=== PATIENT | male | born 1950 | race Caucasian/White ===

== ENCOUNTER → 2018-01-31 11:30 | Outpatient (CLI) | payer OTHER, MEDICARE, SELFPAY ==
--- NOTE | 2018-01-31 | DI.MRI.S_ITS ---
PROCEDURE: MR HIP LT WO CON INDICATIONS: ACUTE PAIN OF LEFT HIP AND KNEE TECHNIQUE: Noncontrast coronal T1 spin echo and STIR through the bony pelvis. Coronal and axial T2 fast spin echo with fat saturation, sagittal T1 spin echo, and oblique axial T2 fast spin echo with fat saturation through the hip. COMPARISON: [facility], CR, XR PELVIS WITH LATERAL HIP LEFT, 12/15/2017, 10:44. FINDINGS: Image quality: Excellent. Bones and joints: Bone marrow of the pelvic ring and proximal femurs show normal signal throughout. No intraosseous lesions or fractures. No avascular necrosis of the femoral heads. The visualized lower lumbar spine appears normally aligned. There is mild to moderate hip joint osteoarthritis symmetric bilaterally, previously also seen by plain film imaging A. Tendons and ligaments: The gluteus medius and minimus tendons appear intact, without associated muscle atrophy. The nearby proximal iliotibial band also appears intact. The iliopsoas tendon appears intact, without adjacent bursal fluid collections or evidence for impingement syndrome. The origin of the hamstring tendon is intact at the ischial tuberosity, as well as the associated sacrotuberous ligament. The straight and reflected heads of the rectus femoris muscle origin appear intact, as well as the conjoint tendon. The ligamentum teres appears intact where visualized. Labrum and cartilage: The acetabular labrum appears intact in the absence of intra-articular contrast. Cartilage surface of the femoral head appears of normal thickness. The alpha angle of the femur is within normal limits at less than 55 degrees. Soft tissues: Visualized muscles demonstrate normal bulk and internal signal. Quadratus femoris muscle demonstrates no internal edema to suggest ischiofemoral impingement. The proximal sciatic neurovascular bundle appears normal adjacent to the hamstring tendons. No free pelvic fluid. Bladder wall thickness is normal. Genitourinary structures and bowel loops appear normal where visualized. IMPRESSION: Symmetric hip joint osteoarthritis, mild to moderate, without trauma or evidence of acute inflammation superimposed. Source of new asymmetric left-sided pain is not found otherwise. Dictated by: Stiven Muller M.D. on 01/31/2018 at 16:14 Approved by: Stiven Muller M.D. on 01/31/2018 at 16:15
--- NOTE | 2018-01-31 | DI.MRI.S_ITS ---
PROCEDURE: MR KNEE LT WO CON INDICATIONS: ACUTE PAIN OF LEFT HIP AND KNEE TECHNIQUE: Noncontrast sagittal PD fast spin echo and T2 fast spin echo with fat saturation, sagittal 3-D FLASH with fat saturation; coronal T1 spin echo and PD fast spin echo with fat saturation, and axial PD fast spin echo with fat saturation through the knee. COMPARISON: None. FINDINGS: Image quality: Excellent. Menisci: The medial and lateral menisci demonstrate moderately severe morphology and internal signal. The meniscal root ligaments appear intact. Cruciate ligaments: The anterior and posterior cruciate ligaments appear free of disruption.. Medial structures: The medial collateral ligament appears intact. The posterior oblique ligament, semimembranosus tendon insertions, oblique popliteal ligament, and meniscocapsular junction appear intact. Visualized portions of the pes anserinus tendons appear normal. No abnormal bursal fluid. Lateral structures: The lateral collateral ligament, long and short heads of the biceps femoris tendon appear intact. The popliteus tendon appears normal; the popliteofibular ligament appears intact. The posterosuperior and anteroinferior popliteomeniscal fascicles appear intact. The arcuate and fabellofibular ligaments appear intact, on either side of the lateral inferior geniculate artery. Iliotibial band appears normal. Anterior structures: The quadriceps and patellar tendons appear intact. Patellar alignment is normal. No femoral trochlear dysplasia or ventral trochlear prominence. No edema in the infrapatellar fat pad. Bones and cartilage: No bone marrow contusions or fractures. The cartilage of the medial and lateral femorotibial compartments, as well as the patellofemoral compartment, appears significantly reduced in thickness indicating presence of chronic degenerative knee joint osteoarthritis there is moderately severe at the medial compartment and moderate in severity at the lateral compartment. It appears moderate in severity of the patellofemoral joint lateral facet also. 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 Joint space: There is a mild excess of knee joint fluid. Minimal Hudson's cyst. Normal appearing synovial plicae are incidentally noted. IMPRESSION: Trauma or ligament injury is not found that there is moderately severe to severe degenerative changes involving the 3 compartments of the left knee, most pronounced at the medial compartment of the knee where chondromalacia allow us near [id number] articulation. Reactive marrow edema is present, mild in overall severity, where chondromalacia has eroded the articular cartilage. Reactive joint effusion is mild in severity, as a result. Degenerative morphology and signal abnormalities are present involving the medial and lateral menisci, most prominent medially. Dictated by: Stiven Muller M.D. on 01/31/2018 at 16:16 Approved by: Stiven Muller M.D. on 01/31/2018 at 16:20
== END ==
PROVIDERS: Visit Provider Orthopaedic Surgery
DX: M25.552 Pain in left hip (principal); M25.562 Pain in left knee; M16.0 Bilateral primary osteoarthritis of hip; M17.12 Unilateral primary osteoarthritis, left knee; M94.262 Chondromalacia, left knee; M25.462 Effusion, left knee
CPT/HCPCS: 73721

== ENCOUNTER 2020-10-30 06:34 | Day surgery (SDC) | payer OTHER, SELFPAY ==
--- NOTE | 2020-10-30 | PATH_ITS ---
[facility] Accession Number: [id number] . 01 Material submitted: . colon - TRANSVERSE COLON POLYP X2 . 02 Diagnosis: Transverse Colon, Polyp x2, Biopsy: Tubular adenoma, one fragment. MRV 11/01/2020 1341 Local . 02 Electronically signed: . Aliya Camacho MD, Pathologist NPI- [id number] . 01 Gross description: . TRANSVERSE COLON POLYP X2: Received in formalin is 1 fragment(s) of squires, soft tissue measuring 0.4 x 0.2 x 0.2 cm submitted entirely in 1 cassette(s) /MAURICOI 10/31/2020 0417 Local . 02 Pathologist provided ICD-10: D12.3 . 02 CPT . 145947 Performed at: 01 [facility] Located within [facility] [address] [id number] MD William Summers MD Phone: [phone] Performed at: 02 [facility] [place] [address] [place], [place] [id number] MD Aliya Camacho MD Phone: [phone]
[2020-10-30 07:12] LABS: COVID19 -Nasal RAPID Negative (Negative)
--- NOTE | 2020-10-30 08:12 | PM.HP.1 ---
History of Present Illness History of Present Illness Date Patient Seen: 10/30/20 Time Patient Seen: 08:13 Chief complaint: SDC Narrative: I reviewed the H/P by Dr Neville on 08/21. No changes. Patient History Medical History Hypercholesteremia Hypertension Family & Social History Family history unavailable: Yes Meds Home Medications and Allergies Home Medications Medication Instructions Recorded Confirmed Type amlodipine 2.5 mg tablet 2.5 mg PO DAILY 10/30/20 10/30/20 History aspirin 81 mg tablet,delayed 81 mg PO DAILY 10/30/20 10/30/20 History release atorvastatin 10 mg tablet 10 mg PO DAILY 10/30/20 10/30/20 History latanoprost 0.005 % eye drops 1 drp OPHTHALMIC (EYE) DAILY 10/30/20 10/30/20 History losartan 100 1 tab PO DAILY 10/30/20 10/30/20 History mg-hydrochlorothiazide 25 mg tablet Allergies Allergy/AdvReac Type Severity Reaction Status Date / Time sulfamethoxazole Allergy Intermediate Cough Verified 10/30/20 07:49 [From Bactrim] trimethoprim [From Bactrim] Allergy Intermediate Cough Verified 10/30/20 07:49 Review of Systems Review of Systems ROS: Yes All systems reviewed with the patient and are negative except as otherwise documented Exam Const General: cooperative and comfortable Orientation: alert HENAL Head: normocephalic Ears: external ears normal Nose: external nose normal Face and sinus: normal facial exam Mouth: oral mucosae normal Eyes General: appearance normal, both eyes and all related structures Neck Neck: normal visual inspection Chest Chest: normal inspection of the chest Resp Effort & Inspection: normal respiratory effort Auscultation: clear to auscultation bilaterally Cardio Rate: regular rate Rhythm: regular rhythm Heart Sounds: no murmurs GI Inspection: normal to inspection Palpation: soft and No tender Auscultation: normal bowel sounds Skin General: no rashes or lesions noted and No jaundice Neuro General: patient alert and moves all extremities Cognition: normal cognition Speech: speech normal Extrem General: no pedal edema Psych Appearance: grossly normal Objective Labs Labs: Laboratory Results - last 24 hr 10/30/20 06:47 SARS-CoV-2 (PCR) Negative Assessment & Plan Assessment & Plan narrative: Change in bowel. personal hx of colon polyps. Colonoscopy today.
[2020-10-30 08:17] VITALS: BP 142/93; PULSE 60; RESP 16; TEMP 36.3; O2SAT 97
[2020-10-30] MEDS: LACTATED RINGERS 1,000 ML 42 ML IV (08:18)
--- NOTE | 2020-10-30 08:18 | PM.PREOP ---
Pre-operative Note COVID-19 COVID-19 status: Negative Result date/Date tested (Pos, Neg/Pending): 10/30/20 Interval Note History & Physical reviewed/Exam performed by Physician: Yes Changes to H&P: No ASA Class (for procedural sedation): II
[2020-10-30] MEDS: fentaNYL 250 MCG/5 ML INJ IV (08:33)
[2020-10-30] MEDS: MIDAZOLAM 5 MG/5 ML VIAL IV (08:40)
--- NOTE | 2020-10-30 09:10 | PM.OP.ENDO ---
Operative Date/Time/Diagnoses Date of procedure: 10/30/20 Time of procedure: 08:30 Pre-op diagnosis: Colon polyps Post-op diagnosis: other (Colon polyps, diverticulosis, hemorrhoids ) Procedure & Clinicians Study performed: colonoscopy with snare polypectomy Same procedure as scheduled: Yes Indications: polyps hx Surgeon: Adrien Beltran Procedure Notes SCOAP/Timeout: done Procedure in detail: After the risks and benefits were explained, written and verbal informed consent was obtained. The patient was brought into the procedure room and placed into the left lateral decubitus position. Conscious sedation medication was applied as per nursing documentation. Digital rectal examination was accomplished. The scope was introduced into the patient and advanced under direct visualization to the cecum as identified by the appendiceal orifice and ileocecal valve. The scope was slowly withdrawn to carefully examine the mucosa for any defects or lesions. Comprehensive imaging was accomplished throughout the rectum including the dentate line. The colon was decompressed, the scope was then removed from the patient who tolerated the procedure well. 5mg versed, 50mcg fentanyl Scope withdrawal time: 20 minutes Sedation minutes: 35 Impression: Diverticulosis in the sigmoid Colon polyps x 2 in the transverse removed with hot snare polypectomy. These ranged from 7-9mm in greatest dimension. The larger of the two polyps was lost in the channel of the scope. Moderate hemorrhoids Enlarged appearing prostate. Post-procedure Recommendations: Colonscopy in 5 years Plan for aftercare: Follow up in primary care for prostate health. Disposition: PACU
[2020-10-30 09:11] VITALS: BP 147/87; PULSE 67; RESP 11; TEMP 36.3; O2SAT 94
[2020-10-30 09:15] VITALS: BP 137/79; PULSE 62; RESP 15; O2SAT 98
[2020-10-30 09:22] VITALS: BP 141/91; PULSE 72; RESP 19; TEMP 36.7; O2SAT 97
--- NOTE | 2020-10-30 09:24 | SUR.PHASEI ---
Stable PACU stay.
[2020-10-30 09:28] VITALS: BP 148/86; PULSE 58; RESP 18; TEMP 36.2; O2SAT 98
--- NOTE | 2020-10-30 09:45 | SUR.PHASEII ---
Belly soft, tolerated liquids, wanting to go home, called. Pt dressed, left when ready and left in stable condition.
[2020-10-30 09:46] VITALS: BP 141/86; PULSE 58; RESP 169; TEMP 36.4
== END 2020-10-30 09:51 | disposition home or self-care (01) ==
PROVIDERS: Referring Provider Internal Medicine Gastroenterology; Visit Provider Internal Medicine Gastroenterology
PROC: 0DJD8ZZ Inspection of Lower Intestinal Tract, Via Natural or Artificial Opening Endoscopic (ICD-10-PCS; CPT 45378; principal; 2020-10-30 08:30)
DX: Z12.11 Encounter for screening for malignant neoplasm of colon (principal); Z86.010 Personal history of colon polyps; Z20.822 Contact with and (suspected) exposure to COVID-19; K57.30 Diverticulosis of large intestine without perforation or abscess without bleeding; K64.9 Unspecified hemorrhoids; D12.3 Benign neoplasm of transverse colon
CPT/HCPCS: 45385; 87635; J2250; J3010

== ENCOUNTER 2022-08-13 09:07 | Inpatient (IN) | payer MEDICARE, OTHER, SELFPAY ==
[2022-08-13] VITALS (19 sets, daily range): BP systolic 126–166; BP diastolic 62–99; PULSE 68–85; RESP 16–19; TEMP 36.3–36.9; O2SAT 93–98; BMI 37.5; BMI 36.8
[2022-08-13 09:27] LABS: Add Manual Diff / Slide Review NO; Basophils Absolute Auto 100 /uL (0-100); Basophils Percent Auto 0.7 % (0-2); Eosinophils Absolute Auto 0 /uL (0-450); Eosinophils Percent Auto 0.5 % (2-4); Hematocrit 37.6 % (41-53); Hemoglobin 12.8 g/dL (13.5-17.5); Lymphocytes Absolute Auto 1500 /uL (1100-4500); Lymphocytes Percent Auto 15.7 % (25-40); Mean Corpuscular Hemoglobin 31.3 PG (26-34); Monocytes Absolute Auto 700 /uL (0-900); Monocytes Percent Auto 7.6 % (3-14); Neutrophils Absolute Auto 7400 /uL (1500-7000); Neutrophils Percent Auto 75.5 % (50-75); Platelet Count 157 X10^3/uL (150-400); Red Blood Cell Count 4.09 X10^6/uL (4.5-5.9); Red Cell Distribution Width 13.2 % (11.6-14.8); White Blood Cell Count 9.8 X10^3/uL (4.5-11.0)
[2022-08-13 09:43] LABS: Alanine Aminotransferase 22 IU/L (<50); Albumin 4.1 g/dL (3.5-5.0); Albumin Globulin Ratio 1.5 (1.0-2.8); Alkaline Phosphatase 125 U/L (38-126); Aspartate Aminotransferase 22 IU/L (17-59); BUN Creatinine Ratio 17.9 (6-22); Bilirubin Total 0.6 mg/dL (0.2-1.3); Blood Urea Nitrogen 14 mg/dL (9-20); Calcium 8.7 mg/dL (8.4-10.2); Carbon Dioxide 27 mmol/L (22-32); Chloride 104 mmol/L (98-107); Estimated Glomerular Filt Rate > 60 mL/min (>60); Globulin 2.8 g/dL (1.7-4.1); Glucose 108 mg/dL (80-110); HEMOLYSIS < 15 (0-50); Lipase 72 U/L (23-300); Potassium 3.7 mmol/L (3.4-5.1); Sodium 138 mmol/L (137-145); Total Protein 6.9 g/dL (6.3-8.2)
--- NOTE | 2022-08-13 10:40 | ED.ABDPAIN ---
HPI - Abdominal Pain General Chief Complaint: Abdominal Pain Stated Complaint: T-60 gurgling stomach/T-1 gas couldn't sleep Time Seen by Provider: 08/13/22 10:20 Source: patient Mode of arrival: Ambulatory History of Present Illness HPI narrative: This is a 72-year-old male who presents with complaint of 2 months of a gurgling stomach and sometimes indigestion which he describes as upper abdominal discomfort he does not normally get any chest discomfort or burning substernally. He states it has been slowly progressive, last night he states he had a couple glasses of wine they had been playing cards with friends and had multiple not healthy foods according to the patient. He states that he had increasing pain sometimes when his stomach gurgles he will feel gas moving throughout and will have some discomfort but it is usually more mid abdomen not so much lower pelvic. States he threw up 2 or 3 times last night which is atypical and was the food that he would eaten. No blood or other changes. He states he did have a little bit of substernal reflux after vomiting where he had some burning in his chest that resolved. No shortness of breath. No passing out. He states he does not belching frequently but has had a lot of flatulence. He states his bowel movements today loose but formed. He states no diarrhea, no constipation. No bright red blood or melena. Patient states when he eats it seems to worsen or cause his symptoms. Last night he would sit up for about half an hour his symptoms feel better and then he laid down and they would reoccur. He does take Gaviscon nightly which was helpful up to this point. He denies any back or flank pain. No urinary symptoms. Was taken aspirin 81 mg daily after he had a hip surgery a month ago but is not typically medication for him daily. He takes medication for hypertension dyslipidemia. Prior appendectomy, no cardiac stents. Allergic to Bactrim. No tobacco, will have drinks frequently but 1 or 2 in the evening, no illicit. [facility] Rivers. Patient notes that they told him he had a mass in his abdomen he is never had an EGD or any imaging he states he can quarter palpated unsure if this is mass versus hernia. Related Data Home Medications Medication Instructions Recorded Confirmed aspirin 81 mg tablet,delayed 81 mg PO DAILY 10/30/20 08/13/22 release atorvastatin 10 mg tablet 10 mg PO DAILY 10/30/20 08/13/22 latanoprost 0.005 % eye drops 1 drp ophthalmic (eye) DAILY 10/30/20 08/13/22 losartan 100 1 tab PO DAILY 10/30/20 08/13/22 mg-hydrochlorothiazide 25 mg tablet amlodipine 10 mg tablet 10 mg PO DAILY 08/13/22 08/13/22 terazosin 5 mg capsule 5 mg PO DAILY 08/13/22 08/13/22 Allergies Allergy/AdvReac Type Severity Reaction Status Date / Time sulfamethoxazole Allergy Intermediate Cough Verified 08/13/22 15:43 [From Bactrim] trimethoprim [From Bactrim] Allergy Intermediate Cough Verified 08/13/22 15:43 Review of Systems Review of Systems ROS Unobtainable: All systems reviewed & are unremarkable except as noted in HPI and below Patient History Medical History Hypercholesteremia Hypertension Social History household members: spouse Smoking Status: Never smoker alcohol intake: current Smoking Status: Never smoker alcohol intake frequency: holidays/special occasions only Substance Use Type: does not use Exam Narrative Exam Narrative: GENERAL: Alert and oriented x three, well-appearing male in mild distress. HEENT: Head normocephalic, atraumatic, EOMI, pupils reactive, face symmetric, moist mucous membranes NECK: Supple, full range of motion CARDIOVASCULAR: Regular rate and rhythm without murmurs, rubs or gallops. RESPIRATORY: Breath sounds equal bilaterally, no wheezes rales or rhonchi. ABDOMEN: Soft, nontender. Nondistended. Normoactive bowel sounds all 4 quadrants. No guarding or rebound, rigidity, no mass : No CVA tenderness EXTREMITIES: Normal range of motion, no clubbing or edema. Neurovascularly intact NEUROLOGICAL: Cranial nerves II through XII grossly intact. Moving all extremities SKIN: Warm, dry, no petechiae, no rashes or lesions. Initial Vital Signs Initial Vital Signs: Vital Signs Temperature 98.1 F 08/13/22 09:12 Pulse Rate 68 08/13/22 09:12 Respiratory Rate 19 08/13/22 09:12 Blood Pressure 157/77 H 08/13/22 09:12 Pulse Oximetry 97 08/13/22 09:12 Oxygen Delivery Method Room Air 08/13/22 09:12 Course Orders Ordered: ED Orders 08/13/22 10:51 CT abdomen pelvis w con Stat 08/13/22 13:10 COVID19 -Nasal RAPID Stat Acetaminophen (Acetaminophen 325 Mg Tablet) 650 mg PO Q6H PRN PRN Reason: Fever/Mild Pain (1-3) Amlodipine Besylate (Amlodipine 5 Mg Tablet) 10 mg PO DAILY [facility] Atorvastatin Calcium (Atorvastatin 20 Mg Tablet) 10 mg PO DAILY [facility] Hydrochlorothiazide (Hydrochlorothiazide 25 Mg Tablet) 25 mg PO DAILY [facility] Hydromorphone HCl (Hydromorphone 1 Mg Inj) 1 mg IV Q3H PRN PRN Reason: Pain, Moderate (4-6) Sodium Chloride (Normal Saline 0.9%) 1,000 mls @ 100 mls/hr IV CONT SAJI Last Admin: 08/13/22 14:43 Dose: 100 mls/hr Documented By: SHERI Lactated Ringer's (Lactated Ringers) 1,000 mls @ 42 mls/hr IV NOW ONE Stop: 08/14/22 18:08 Last Infusion: 08/13/22 18:20 Dose: 0 mls/hr Documented By: Admin: 08/13/22 17:00 Dose: 42 mls/hr Documented By: OMAR Latanoprost (Latanoprost 0.005% Ophth 2.5 Ml) 1 drops EYE-BOTH BEDTIME [facility] Losartan Potassium (Losartan 50 Mg Tablet) 100 mg PO DAILY [facility] Naloxone HCl (Naloxone 0.4 Mg/Ml Vial) 0.2 mg IV Q2MIN PRN PRN Reason: Opiate Reversal Ondansetron HCl (Ondansetron 4 Mg/2 Ml Inj) 4 mg IV NOW PRN PRN Reason: Nausea And Vomiting Oxycodone HCl (Oxycodone Ir 5 Mg Tablet) 5 mg PO Q3H PRN PRN Reason: Pain, Moderate (4-6) Terazosin HCl (Terazosin 5 Mg Capsule) 5 mg PO DAILY [facility] Discontinued Medications Bupivacaine HCl (Bupivacaine 0.25% (Pf) Vial) 30 ml INJ NOW ONE Stop: 08/13/22 16:56 Last Admin: 08/13/22 16:56 Dose: 20 ml Documented By: OUMAR Fentanyl (Fentanyl 100 Mcg/2 Ml Inj) 0 mcg IV Q5MIN PRN PRN Reason: Pain, Severe (7-10) Fentanyl (Fentanyl 100 Mcg/2 Ml Inj) 0 mcg IV Q5M PRN PRN Reason: Pain, Moderate (4-6) Fentanyl (Fentanyl 100 Mcg/2 Ml Inj) 0 mcg IV Q5M PRN PRN Reason: Pain, Severe (7-10) Hydromorphone HCl (Hydromorphone 2 Mg Inj) 0 mg IV Q5MIN PRN PRN Reason: Pain, Mild (1-3) Hydromorphone HCl (Hydromorphone 2 Mg Inj) 0 mg IV Q5M PRN PRN Reason: Pain, Moderate (4-6) Hydromorphone HCl (Hydromorphone 2 Mg Inj) 0 mg IV Q5M PRN PRN Reason: Pain, Severe (7-10) Cefazolin Sodium/Dextrose (Ancef) 100 mls @ 200 mls/hr IV NOW ONE Stop: 08/13/22 16:56 Last Infusion: 08/13/22 16:55 Dose: 0 mls/hr Documented By: Admin: 08/13/22 16:48 Dose: 200 mls/hr Documented By: RIMA Ondansetron HCl (Ondansetron 4 Mg/2 Ml Inj) 4 mg IV NOW PRN PRN Reason: Nausea And Vomiting Oxycodone/Acetaminophen (Oxycodone/Acetaminophen 5/325 Tablet) 1 tab PO PACUNOW PRN PRN Reason: Mild or Moderate Pain Pantoprazole Sodium (Pantoprazole 40 Mg Vial) 40 mg IV NOW ONE Stop: 08/13/22 10:52 Last Admin: 08/13/22 11:08 Dose: 40 mg Documented By: ANNIE Vital Signs Vital signs: Vital Signs - 8 hr 08/13/22 13:41 Blood Pressure 166/90 H MDM - Abdominal Pain Lab Data 08/13/22 09:20 08/13/22 09:20 Labs: Lab Results 08/13/22 08/13/22 08/13/22 Range/Units 09:20 09:20 09:23 WBC 9.8 (4.5-11.0) X10^3/uL RBC 4.09 L (4.5-5.9) X10^6/uL Hgb 12.8 L (13.5-17.5) g/dL Hct 37.6 L (41-53) % MCV 92.0 (80-100) fL MCH 31.3 (26-34) PG MCHC 34.0 (30-36) % RDW 13.2 (11.6-14.8) % Plt Count 157 (150-400) X10^3/uL Neut % (Auto) 75.5 H (50-75) % Lymph % (Auto) 15.7 L (25-40) % [place] % (Auto) 7.6 (3-14) % Eos % (Auto) 0.5 L (2-4) % Baso % (Auto) 0.7 (0-2) % Neut # (Auto) 7400 H (3392-9908) /uL Lymph # (Auto) 1500 (4710-0099) /uL [place] # (Auto) 700 (0-900) /uL Eos # (Auto) 0 (0-450) /uL Baso # (Auto) 100 (0-100) /uL Sodium 138 (137-145) mmol/L Potassium 3.7 (3.4-5.1) mmol/L Chloride 104 (98-107) mmol/L Carbon Dioxide 27 (22-32) mmol/L BUN 14 (9-20) mg/dL Creatinine 0.78 (0.66-1.25) mg/dL Estimated GFR > 60 (>60) mL/min BUN/Creatinine Ratio 17.9 (6-22) Glucose 108 (80-110) mg/dL Calcium 8.7 (8.4-10.2) mg/dL Total Bilirubin 0.6 (0.2-1.3) mg/dL AST 22 (17-59) IU/L ALT 22 (<50) IU/L Alkaline Phosphatase 125 (38-126) U/L Total Creatine Kinase 55 (55-170) U/L CK-MB (CK-2) TNP CK-MB (CK-2) Rel Index TNP Troponin I 0.013 (0.01-0.034) ng/mL Total Protein 6.9 (6.3-8.2) g/dL Albumin 4.1 (3.5-5.0) g/dL Globulin 2.8 (1.7-4.1) g/dL Albumin/Globulin Ratio 1.5 (1.0-2.8) Lipase 72 (23-300) U/L SARS-CoV-2 (PCR) (Negative) 08/13/22 Range/Units 13:10 WBC (4.5-11.0) X10^3/uL RBC (4.5-5.9) X10^6/uL Hgb (13.5-17.5) g/dL Hct (41-53) % MCV (80-100) fL MCH (26-34) PG MCHC (30-36) % RDW (11.6-14.8) % Plt Count (150-400) X10^3/uL Neut % (Auto) (50-75) % Lymph % (Auto) (25-40) % [place] % (Auto) (3-14) % Eos % (Auto) (2-4) % Baso % (Auto) (0-2) % Neut # (Auto) (9098-6158) /uL Lymph # (Auto) (3868-6630) /uL [place] # (Auto) (0-900) /uL Eos # (Auto) (0-450) /uL Baso # (Auto) (0-100) /uL Sodium (137-145) mmol/L Potassium (3.4-5.1) mmol/L Chloride (98-107) mmol/L Carbon Dioxide (22-32) mmol/L BUN (9-20) mg/dL Creatinine (0.66-1.25) mg/dL Estimated GFR (>60) mL/min BUN/Creatinine Ratio (6-22) Glucose (80-110) mg/dL Calcium (8.4-10.2) mg/dL Total Bilirubin (0.2-1.3) mg/dL AST (17-59) IU/L ALT (<50) IU/L Alkaline Phosphatase (38-126) U/L Total Creatine Kinase (55-170) U/L CK-MB (CK-2) CK-MB (CK-2) Rel Index Troponin I (0.01-0.034) ng/mL Total Protein (6.3-8.2) g/dL Albumin (3.5-5.0) g/dL Globulin (1.7-4.1) g/dL Albumin/Globulin Ratio (1.0-2.8) Lipase (23-300) U/L SARS-CoV-2 (PCR) Negative (Negative) Point of care testing: Urine Dip Bedside Urine Glucose Negative Bedside Urine Bilirubin - Negative Bedside Urine Ketone - Negative Urine Specific Rice 1.015 Bedside Urine Occult Blood - Negative Bedside Urine pH 7.0 Bedside Urine Protein - Negative Bedside Urine Urobilinogen - Negative Bedside Urine Nitrite - Negative Bedside Urine Leukocytes - Negative Esterase Imaging Data CT scan - abdomen/pelvis: Radiologist's Impression: [address] [address] [address] Scan Report Signed Patient: Parker Phoenix MR#: [id number] : 1950 Acct:[id number] Age/Sex: 72 / M Date of Service: 08/13/22 Loc: ED Accession Number: [id number] ?? Procedure: CT abdomen pelvis w con Ordering Provider: Tasha Whitt D.O. PROCEDURE:? CT ABDOMEN PELVIS W CON ? INDICATIONS:? reflux/abd pain worsening over 2 months, told has mass in ab ? TECHNIQUE:? After the administration of intravenous contrast, axial sections acquired from the lung bases to the pubic symphysis.? Coronal and sagittal reformats were performed.? For radiation dose reduction, the following was used:? automated exposure control, adjustment of mA and/or kV according to patient size.? ? COMPARISON:? None. ? FINDINGS: Image quality:? Excellent.? ? Lung bases:? Lung bases are clear.? Heart size is normal. ? Solid organs:? Liver: The liver has no mass or intrahepatic biliary ductal dilatation. Biliary: The gallbladder has no gallstones, pericholecystic fluid, gallbladder wall thickening, or surrounding inflammatory change. Pancreas: The pancreas has no mass or ductal dilatation. There is no surrounding inflammation. Spleen: Normal size. There are no masses. Adrenals:? 1.3 cm right adrenal nodule with low density consistent with a lipid rich adenoma. Kidneys: No obstructive calculus or hydronephrosis.? No solid mass.? Simple renal cysts.? ? ? Peritoneum and bowel:? Small hiatal hernia.? The distal esophagus and stomach are normal. ?The small bowel demonstrates fluid-filled loops in the left upper quadrant proximal to a periumbilical hernia.? The terminal ileum is normal. The large bowel has diverticulosis with no evidence of diverticulitis.? No free fluid or air.? ? Nodes and vessels:? No retroperitoneal or mesenteric adenopathy by size criteria.? Aorta and inferior vena cava are normal in size.? ? Miscellaneous:? Paraumbilical hernia containing small bowel.? Fat containing right inguinal hernia. ? PELVIS:? Genitourinary:? The bladder has no wall thickening or mass. No bladder calcifications. ? Bones:? Status post total left hip replacement.? No suspicious bony lesions.? No vertebral body compression fractures.? ? IMPRESSION:? 1. Periumbilical hernia containing small bowel and partial small-bowel obstruction proximal to the hernia. 2. Benign right adrenal adenoma. 3. Diverticulosis without evidence of diverticulitis.? ? ? Dictated by: Mike Davis M.D. on 08/13/2022 at 11:58 ? ? Approved by: Mike Davis M.D. on 08/13/2022 at 12:05?? ECG Data Attestation: I personally reviewed and interpreted this ECG as follows: Prior ECG tracings: not available for review Interpretation: Sinus rhythm frequent PVC, rate 82 NE 174 QRS of 144 QTC of 500, right bundle-branch block, left posterior fascicular block. No priors. MDM Narrative Medical decision making narrative: This is a 72-year-old male who presents with persistent and worsening abdominal pain, gurgling, last night started having vomiting, describes some indigestion type symptoms he did have some substernal burning after vomiting so cardiac enzyme was obtained. EKG shows some bifascicular block no priors for comparison. Patient describes all of his pain is mid abdominal though. CBC CMP and lipase were negative. Patient has had a colonoscopy for polyp. He states he was also told he had a mass unsure if this is truly a mass or possibly a hernia it is not easily palpable on exam today. Patient is feeling improved currently but presented as he was starting to feel worse this morning. Patient's urine negative. CT imaging shows hernia with small bowel in it and obstructive. Case was reviewed by Dr. Catherine who accepts for admission with plan for OR. Patient is NPO. Also reviewed his adrenal nodule findings and need for follow-up. Discharge Plan Departure Patient Disposition: Admitted As Inpatient Clinical Impression: Periumbilical hernia, Adrenal nodule Admit Date/Time: 08/13/22 13:52 Admit Provider: Arnulfo Soto
--- NOTE | 2022-08-13 10:51 | DI.CT.S_ITS ---
PROCEDURE: CT ABDOMEN PELVIS W CON INDICATIONS: reflux/abd pain worsening over 2 months, told has mass in ab TECHNIQUE: After the administration of intravenous contrast, axial sections acquired from the lung bases to the pubic symphysis. Coronal and sagittal reformats were performed. For radiation dose reduction, the following was used: automated exposure control, adjustment of mA and/or kV according to patient size. COMPARISON: None. FINDINGS: Image quality: Excellent. Lung bases: Lung bases are clear. Heart size is normal. Solid organs: Liver: The liver has no mass or intrahepatic biliary ductal dilatation. Biliary: The gallbladder has no gallstones, pericholecystic fluid, gallbladder wall thickening, or surrounding inflammatory change. Pancreas: The pancreas has no mass or ductal dilatation. There is no surrounding inflammation. Spleen: Normal size. There are no masses. Adrenals: 1.3 cm right adrenal nodule with low density consistent with a lipid rich adenoma. Kidneys: No obstructive calculus or hydronephrosis. No solid mass. Simple renal cysts. Peritoneum and bowel: Small hiatal hernia. The distal esophagus and stomach are normal. The small bowel demonstrates fluid-filled loops in the left upper quadrant proximal to a periumbilical hernia. The terminal ileum is normal. The large bowel has diverticulosis with no evidence of diverticulitis. No free fluid or air. Nodes and vessels: No retroperitoneal or mesenteric adenopathy by size criteria. Aorta and inferior vena cava are normal in size. Miscellaneous: Paraumbilical hernia containing small bowel. Fat containing right inguinal hernia. PELVIS: Genitourinary: The bladder has no wall thickening or mass. No bladder calcifications. Bones: Status post total left hip replacement. No suspicious bony lesions. No vertebral body compression fractures. IMPRESSION: 1. Periumbilical hernia containing small bowel and partial small-bowel obstruction proximal to the hernia. 2. Benign right adrenal adenoma. 3. Diverticulosis without evidence of diverticulitis. Dictated by: Mike Davis M.D. on 08/13/2022 at 11:58 Approved by: Mike Davis M.D. on 08/13/2022 at 12:05
[2022-08-13 11:02] LABS: Creatine Kinase 55 U/L (55-170)
[2022-08-13] MEDS: PANTOPRAZOLE 40 MG VIAL IV (11:08)
[2022-08-13 11:15] LABS: Troponin I 0.013 ng/mL (0.01-0.034)
[2022-08-13 13:49] LABS: COVID19 -Nasal RAPID Negative (Negative)
--- NOTE | 2022-08-13 14:20 | PM.HP.1 ---
History of Present Illness History of Present Illness Chief complaint: T-60 gurgling stomach/T-1 gas couldn't sleep Narrative: 72-year-old man presents to the hospital with abdominal pain nausea. He developed pain beginning last night with multiple episodes of emesis. He describes pain as zehra umbilical feels bloated. On arrival to the emergency department he is afebrile vital signs are within normal limits. White blood cell count 10 the remainder of his chemistry CBC are normal. CT abdomen pelvis demonstrates a small-bowel obstruction with dilated loops of small bowel transition point within a periumbilical hernia. No free air free fluid. Prior abdominal surgery includes an exploratory laparotomy 50 years ago. He tolerated a recent hip surgery 1 month ago without bleeding or anesthetic issues. [facility] Medical History Hypercholesteremia Hypertension Social History household members: spouse Smoking Status: Never smoker alcohol intake: current Meds Home Medications and Allergies Home Medications Medication Instructions Recorded Confirmed Type aspirin 81 mg tablet,delayed 81 mg PO DAILY 10/30/20 08/13/22 History release atorvastatin 10 mg tablet 10 mg PO DAILY 10/30/20 08/13/22 History latanoprost 0.005 % eye drops 1 drp ophthalmic (eye) DAILY 10/30/20 08/13/22 History losartan 100 1 tab PO DAILY 10/30/20 08/13/22 History mg-hydrochlorothiazide 25 mg tablet amlodipine 10 mg tablet 10 mg PO DAILY 08/13/22 08/13/22 History terazosin 5 mg capsule 5 mg PO DAILY 08/13/22 08/13/22 History Allergies Allergy/AdvReac Type Severity Reaction Status Date / Time sulfamethoxazole Allergy Intermediate Cough Verified 08/13/22 15:43 [From Bactrim] trimethoprim [From Bactrim] Allergy Intermediate Cough Verified 08/13/22 15:43 Exam Vital Signs (past 8 hours): - 08/13/22 09:12 08/13/22 09:13 08/13/22 09:14 Temperature 98.1 F Pulse Rate 68 76 Respiratory Rate 19 Blood Pressure 157/77 H Pulse Oximetry 97 93 95 Oxygen Delivery Method Room Air 08/13/22 09:14 08/13/22 09:30 08/13/22 10:00 Temperature Pulse Rate 82 80 Respiratory Rate Blood Pressure 157/77 H Pulse Oximetry 97 97 Oxygen Delivery Method 08/13/22 10:30 08/13/22 10:34 08/13/22 13:41 Temperature Pulse Rate 85 81 Respiratory Rate Blood Pressure 166/90 H Pulse Oximetry 98 98 Oxygen Delivery Method Oxygen Delivery Method Room Air Narrative Exam Narrative: GENERAL: A well nourished, well developed gentleman appearing stated age, resting comfortably, in no acute distress. HEENT: Normocephalic, atraumatic. No scleral icterus NECK: Full range of motion. No evidence of cervical lymphadenopathy or JVD. CHEST: Rising symmetrically. No audible wheezes CARDIOVASCULAR: Warm and well perfused. Regular rate ABDOMEN: Tender supraumbilical hernia partially reducible no peritonitis EXTREMITIES: Normal tone and without edema. NEUROLOGIC: Moving all extremities spontaneously. No gross motor deficits. Objective Labs 08/13/22 09:20 08/13/22 09:20 Labs: Laboratory Results - last 24 hr 08/13/22 08/13/22 08/13/22 09:20 09:20 09:23 WBC 9.8 RBC 4.09 L Hgb 12.8 L Hct 37.6 L MCV 92.0 MCH 31.3 MCHC 34.0 RDW 13.2 Plt Count 157 Neut % (Auto) 75.5 H Lymph % (Auto) 15.7 L [place] % (Auto) 7.6 Eos % (Auto) 0.5 L Baso % (Auto) 0.7 Neut # (Auto) 7400 H Lymph # (Auto) 1500 [place] # (Auto) 700 Eos # (Auto) 0 Baso # (Auto) 100 Sodium 138 Potassium 3.7 Chloride 104 Carbon Dioxide 27 BUN 14 Creatinine 0.78 Estimated GFR > 60 BUN/Creatinine Ratio 17.9 Glucose 108 Calcium 8.7 Total Bilirubin 0.6 AST 22 ALT 22 Alkaline Phosphatase 125 Total Creatine Kinase 55 CK-MB (CK-2) TNP CK-MB (CK-2) Rel Index TNP Troponin I 0.013 Total Protein 6.9 Albumin 4.1 Globulin 2.8 Albumin/Globulin Ratio 1.5 Lipase 72 SARS-CoV-2 (PCR) 08/13/22 13:10 WBC RBC Hgb Hct MCV MCH MCHC RDW Plt Count Neut % (Auto) Lymph % (Auto) [place] % (Auto) Eos % (Auto) Baso % (Auto) Neut # (Auto) Lymph # (Auto) [place] # (Auto) Eos # (Auto) Baso # (Auto) Sodium Potassium Chloride Carbon Dioxide BUN Creatinine Estimated GFR BUN/Creatinine Ratio Glucose Calcium Total Bilirubin AST ALT Alkaline Phosphatase Total Creatine Kinase CK-MB (CK-2) CK-MB (CK-2) Rel Index Troponin I Total Protein Albumin Globulin Albumin/Globulin Ratio Lipase SARS-CoV-2 (PCR) Negative Assessment & Plan Assessment and plan (1) Small bowel obstruction: Status: Acute Assessment & Plan narrative: 72M with an incarcerated ventral hernia and small bowel obstruction. I recomended that we proceed with exploratory laparotomy, ventral hernia repair with possible bowel resection. I explained that there is a risk of intestinal ischemia associated with incarcerated hernias and this could potentially require bowel resection and anastamosis. Operative risks Including hemorrhage, infection, anastomotic leak, damage to surrounding structures recurrence of hernia embolism heart attack stroke and were discussed. Questions been answered and he is in agreement with this plan. He provides his written and verbal consent to proceed. Exlap with ventral hernia repair Quality VTE Deep Vein Thrombosis/Pulmonary Embolism Present on Admission: No
[2022-08-13] MEDS: SODIUM CHLORIDE 0.9% 1,000 ML 100 ML IV (14:43)
--- NOTE | 2022-08-13 15:53 | PC.NURSE ---
pt to OR via w/c @ [id number] by OR personnel.
[2022-08-13] MEDS: CEFAZOLIN 2 GM/100 ML PREMIX 100 ML IV (16:48)
[2022-08-13] MEDS: BUPIVACAINE 0.25% (PF) VIAL 30 ML INJ (16:56)
--- NOTE | 2022-08-13 16:56 | SUR.OPER ---
Supine on padded OR bed, head on pillow, arms secured on padded arm boards at <90 degrees abduction, legs uncrossed, safety belt at thigh, tape over blanket over lower legs.
[2022-08-13] MEDS: LACTATED RINGERS 1,000 ML 42 ML IV (17:00)
--- NOTE | 2022-08-13 17:56 | P.OP_ITS ---
Operative Date/Time/Diagnoses Date of procedure: 08/13/22 Time of procedure: 17:59 Pre-op diagnosis: Small-bowel obstruction. Incarcerated ventral hernia Post-op diagnosis: same Procedure & Clinicians Procedure: Exploratory laparotomy Ventral hernia repair 8 cm Same procedure as scheduled: Yes Indications: 72-year-old man who presented with a small-bowel obstruction secondary to an incarcerated ventral hernia. He is taken in the operating room for an exploratory laparotomy and repair of hernia. Surgeon: Arnulfo Soto Click Yes if Unassisted: Yes Anesthesia Type: General Operative Notes Findings: 8 cm fascial defect containing chronically incarcerated small bowel. Bowel was viable Specimen(s): none sent Estimated Blood Loss (mL): 30 Procedure in detail: Patient brought to the operating room placed supine on the table. Bilateral lower extremity compression devices were applied. General anesthesia was induced he was intubated with an endotracheal tube. Received Ancef prior to skin incision. He was then prepped and draped in sterile fashion. Time-out was performed. A supraumbilical midline incision was made. The subcutaneous tissue was divided and the abdominal wall fascia was exposed. There was a 8 cm hernia protruding through the midline. The fascia was opened and the hernia sac carefully opened with Mets. There was a loop of chronically incarcerated small bowel within the hernia. The small bowel was then dissected off of the hernia sac using sharp dissection. The bowel was examined and it was viable without signs of ischemia. There was 1 spot which was either a tear in the hernia sac or serosal tear but regardless this was imbricated with silk suture. Small bowel was then returned to the abdomen. The hernia sac was excised. The fascia was then closed with running 1. PDS suture. Bilateral skin flaps were raised in order to expose the anterior sheath. A 6 x 3 in piece of polypropylene macro porous mesh was then cut to size to cover the defect with good overlap in all directions. The mesh was then tacked to the fascia using Ethibond suture follow ed by the application of 4 mL Tisseel. The subcutaneous tissue was infiltrated with 0.25% bupivacaine total of 20 mL. Subcutaneous tissue was reapproximated with Vicryl the skin was closed with a running 4-0 Monocryl. Patient tolerated the procedure well he was extubated and transferred to recovery room in stable condition after receiving tap block. Complications: none Post-operative Condition: stable Disposition: observation
[2022-08-13] MEDS: LATANOPROST 0.005% OPHTH 2.5 ML 1 DROPS EYE-BOTH (19:49)
[2022-08-14] VITALS (9 sets, daily range): BP systolic 125–144; BP diastolic 68–85; PULSE 58–83; RESP 18–21; TEMP 36.2–36.9; O2SAT 93–99; BMI 36.8
[2022-08-14] MEDS: SODIUM CHLORIDE 0.9% 1,000 ML 100 ML IV (04:11)
--- NOTE | 2022-08-14 08:46 | CM.DANOTE ---
DCP: Case received, EMR reviewed and met with patient. Introduced self and role. Was able to obtain information regarding patient's baseline activity level prior to hospitalization. DCP assessment completed with information currently available. Patient is a 72 year old male who admitted yesterday afternoon to the care of the hospitalist team. PCP: DALIA Fitzgerald at [facility] in [facility]. Payer: confirmed: Medicare/ for Life. Patient came to the hospital via private vehicle secondary to having gurgling stomach, indigestion, going on for a couple of months. Patient had developed multiple episodes of emesis as well. Patient was diagnosed with incarcerated ventral hernia, and small bowel obstruction. Patient had surgery yesterday pm, exploratory laparotomy, ventral hernia repair. Met with patient in his room. He was sitting up on the edge of his bed having his breakfast. He is alert and oriented, pleasant. Confirmed that he resides in [place] with spouse, Carmen. He is independent at his baseline, is retired. Goes to the [facility] in [facility] for his care. P: DCP to continue to follow. Patient should be able to go home when deemed medically stable. Natividad Marshall RN/Electrical And Radio Mock Up Mechanic Discharge Planning/Care Management CM Discharge Assessment Start: 08/14/22 08:44 Freq: Status: Active Protocol: Document 08/14/22 08:44 (Rec: 08/14/22 08:46 [id number]) Discharge Planning Assessment Assigned Grain Loader Natividad Marshall RN/Electrical And Radio Mock Up Mechanic Advance Directives? Yes Advance Directives on File No History Provided By Patient,Family Member,Medical Record Prior Living Arrangements House Household Members spouse Type of transporation used prior to Drives own vehicle admit Independent with ADL's Yes Is patient alert and oriented? Yes Caregiver for Another No Barriers to Discharge No Discharge Plan Home Transportation Arrangement Spouse Referrals Initiated None needed Whiteboard Updated in Patient Room with Yes name and ext. # of Grain Loader Review Status In Process Next Review Type Continued Stay Review
[2022-08-14] MEDS: AMLODIPINE 5 MG TABLET 10 MG PO (09:24)
[2022-08-14] MEDS: LOSARTAN 50 MG TABLET 100 MG PO (09:25)
[2022-08-14] MEDS: hydroCHLOROthiazide 25 MG TABLET PO (09:25)
[2022-08-14] MEDS: ACETAMINOPHEN 325 MG TABLET 650 MG PO (10:57)
--- NOTE | 2022-08-14 13:34 | PC.NURSE ---
Pt A&Ox4, VSS, RA, independent in room. Tolerated full diet. Pain managed with Tylenol per pt request. Reviewed discharge information with patient, pt able to teach back independently. Patient escorted down with belongings by FREIGHT CAR INSPECTOR and discharged home with ride from .
--- NOTE | 2022-08-15 17:41 | PM.DS.1 ---
History of Present Illness History of Present Illness Chief complaint: T-60 gurgling stomach/T-1 gas couldn't sleep Narrative: 72-year-old man presents to the hospital with abdominal pain nausea. He developed pain beginning last night with multiple episodes of emesis. He describes pain as zehra umbilical feels bloated. On arrival to the emergency department he is afebrile vital signs are within normal limits. White blood cell count 10 the remainder of his chemistry CBC are normal. CT abdomen pelvis demonstrates a small-bowel obstruction with dilated loops of small bowel transition point within a periumbilical hernia. No free air free fluid. Prior abdominal surgery includes an exploratory laparotomy 50 years ago. He tolerated a recent hip surgery 1 month ago without bleeding or anesthetic issues. Discharge Providers Provider Date of admission: 08/13/22 13:52 Discharge Date: 08/14/22 Primary care physician: MEGHANN Fitzgerald Discharge provider: Arnulfo Soto MD Summary Hospital Course Discharge Diagnosis: Incarcerated hernia Small-bowel obstruction Hospital Course: Patient presented with a incarcerated ventral hernia causing small-bowel obstruction. Following a discussion of risks benefits and alternatives he elected to proceed with surgery. Surgery demonstrated a chronically incarcerated portion of bowel within a ventral hernia defect. The bowel was viable and the hernia was repaired. Following surgery he had return of bowel function was ambulatory tolerant of a regular diet afebrile and the remainder of his vital signs within normal limits. He was given discharge instructions to return for worsening abdominal pain fever nausea vomiting. Exam Vital Signs (past 8 hours): Oxygen Delivery Method Room Air Oxygen Flow Rate 0 Narrative Exam Narrative: General adult man alert oriented no acute distress Abdomen soft midline incision clean dry intact. Appropriately tender to palpation. Objective Labs 08/13/22 09:20 08/13/22 09:20 [facility] Medical History Hypercholesteremia Hypertension Social History household members: spouse Smoking Status: Never smoker alcohol intake: current Discharge Plan Discharge Plan Patient Disposition: Home Provider Discharge Comment: -Okay to shower -Do not submerge wounds in water until seen in follow-up. -No lifting >20 lbs x 4 weeks. -Walking only for exercise for 4 weeks. -No driving while taking narcotics. Discharge orders & Medications Prescriptions: New acetaminophen [Tylenol] 325 mg capsule 650 mg PO QID PRN (Reason: pain) Qty: 60 0RF Continued latanoprost 0.005 % Drops 1 drp OPHTHALMIC (EYE) DAILY atorvastatin 10 mg Tablet 10 mg PO DAILY aspirin 81 mg Tablet,Delayed Release (Dr/Ec) 81 mg PO DAILY losartan-hydrochlorothiazide 100-25 mg Tablet 1 tab PO DAILY terazosin 5 mg Capsule 5 mg PO DAILY amlodipine 10 mg Tablet 10 mg PO DAILY Follow up/Referrals: Arnulfo Soto MD [Physician] - 2 Weeks Lg Rivers ARNP [Primary Care Provider] - Diet/Activity/Treatments Diet: Regular Skin/Wound/Dressing Care Report to your healthcare provider any signs of infection, such as:: chills, fever, increased pain, unusual drainage and unusual redness Visit Report/Discharge Packet Stand Alone Forms: Patient Portal/API, Stroke Signs & Symptoms Discharge Data Primary Care Provider: Lg Rivers Discharges patient from system. Discharge Date/Time: 08/14/22 13:25 Quality VTE Deep Vein Thrombosis/Pulmonary Embolism Present on Admission: No
== END 2022-08-14 13:25 | disposition home or self-care (01) | DRG 357 ==
LOC: ED 13:41 → AC 13:53
PROVIDERS: Admitting Provider Surgery; Emergency Provider Emergency Medicine; PCP Nurse Practitioner Family; Referring Provider Emergency Medicine; Visit Provider Surgery
PROC: 0DQV0ZZ Repair Mesentery, Open Approach (ICD-10-PCS; CPT 49000; principal; 2022-08-13 16:15)
DX: K43.6 Other and unspecified ventral hernia with obstruction, without gangrene (principal); K56.609 Unspecified intestinal obstruction, unspecified as to partial versus complete obstruction; E78.00 Pure hypercholesterolemia, unspecified; I10 Essential (primary) hypertension; Z20.822 Contact with and (suspected) exposure to COVID-19
CPT/HCPCS: 36415; 49594; 74177; 80053; 81003; 82550; 83690; 84484; 85025; 87635; 93005; 93010; 96374; 99222; 99284; C9803; C1781; C9113; J0330; J0690; J1100; J1885; J2250; J2405; J2704; J3010; Q9967